=== PATIENT | female | born 1980 | race Caucasian/White ===

== ENCOUNTER 2017-09-20 00:20 | Emergency (ER) | END 2017-09-20 06:06 | disposition home or self-care (01) ==

== ENCOUNTER 2019-05-22 13:29 | Inpatient (IN) | payer MEDICAID ==
[~2019-05-22 13:29] MED LIST: ACET500C5 PO; IBUP-1542 PO; PRENAT PO
[2019-05-22 14:07] VITALS: BP 146/90; PULSE 80; RESP 18
[2019-05-22] MEDS ORDERED: CEFAZOLIN 2 GM/50 ML (PMX) 50 ML IVPB ONE (14:30)
[2019-05-22] MEDS ORDERED: LACTATED RINGER'S 1,000 ML IV SCH ×2 (17:00→23:30)
[2019-05-22] MEDS ORDERED: LABETALOL HCL 20MG INJ IV PRN (18:30)
[2019-05-22] MEDS ORDERED: MAGNESIUM SULFATE 4 GM/100 ML 100 ML ONE (18:30)
[2019-05-22] MEDS ORDERED: MAGNESIUM SULFATE 4 GM/100 ML 100 ML IV SCH (18:30)
[2019-05-22] MEDS ORDERED: CA GLUCONATE (GM) 10% 10ML INJ IV PRN (18:30)
[2019-05-22] MEDS ORDERED: DIPHENHYDRAMINE 50 MG INJ IV PRN ×2 (19:00)
[2019-05-22] MEDS ORDERED: ALBUTEROL 0.083% (NEB) 2.5 MG/3 ML AMP HHN PRN (19:00)
[2019-05-22] MEDS ORDERED: FENTAnyl 50 MCG/ML VIAL IV PRN ×2 (19:00)
[2019-05-22] MEDS ORDERED: KETOROLAC 30 MG INJ IV PRN ×2 (19:00)
[2019-05-22] MEDS ORDERED: NALOXONE (0.4 MG/ML) INJ IV PRN (19:00)
[2019-05-22] MEDS ORDERED: HYDROmorphONE 0.5 MG/0.5 ML SYG IV PRN ×2 (19:00)
[2019-05-22] MEDS ORDERED: HYDROmorphONE 1 MG/5 ML IV SYRINGE IV PRN ×2 (19:00)
[2019-05-22] MEDS ORDERED: METOCLOPRAMIDE 10 MG INJ IV PRN (19:00)
[2019-05-22] MEDS ORDERED: ONDANSETRON 4 MG INJ IV PRN ×2 (19:00)
[2019-05-22] MEDS: MAGNESIUM SULFATE 40GM/1000ML 1,000 ML IV SCH (19:17)
[2019-05-22] MEDS ORDERED: morphine SULFATE/PF (10 MG/10 ML) INJ ONE (19:49)
[2019-05-22] MEDS ORDERED: PHENYLephrine (100 MCG/ML) 10ML SYG ONE (19:49)
[2019-05-22] MEDS ORDERED: OXYTOCIN 30 UNITS/LR 500 ML BAG IV ONE (19:49)
[2019-05-22] MEDS ORDERED: OXYTOCIN 30 UNITS/LR 500 ML IV PRN ×2 (22:00→23:30)
[2019-05-22] MEDS ORDERED: CARBOPROST 250 MCG INJ IM PRN ×2 (22:00→23:30)
[2019-05-22] MEDS ORDERED: OXYTOCIN 30 UNITS/LR 500 ML IV SCH ×2 (22:00→23:30)
[2019-05-22] MEDS ORDERED: MISOPROSTOL 200 MCG TAB PR PRN ×2 (22:00→23:30)
[2019-05-22] MEDS ORDERED: LANOLIN HPA 1 PKT TOP PRN (23:30)
[2019-05-23] VITALS (20 sets, daily range): BP systolic 102–152; BP diastolic 59–84; PULSE 82–101; RESP 16–20
[2019-05-23] MEDS: MAGNESIUM SULFATE 40GM/1000ML 1,000 ML IV SCH ×2 (03:18→15:02)
[2019-05-23] MEDS: SENNA/DOCUSATE NA (8.6MG/50MG) TAB PO SCH ×2 (09:28→21:32)
[2019-05-23] MEDS ORDERED: OXYCODONE/ACETAMINOPHEN (5/325) TAB PO PRN (19:00)
[2019-05-23] MEDS: IBUPROFEN 800 MG TAB PO SCH (21:32)
[2019-05-24 00:40] VITALS: BP 125/66; PULSE 86; RESP 18
[2019-05-24 04:51] VITALS: BP 140/81; PULSE 76; RESP 18
[2019-05-24] MEDS: IBUPROFEN 800 MG TAB PO SCH ×3 (06:05→21:31)
[2019-05-24 08:00] VITALS: BP 119/68; PULSE 72; RESP 18
[2019-05-24] MEDS: SENNA/DOCUSATE NA (8.6MG/50MG) TAB PO SCH ×2 (10:23→21:30)
[2019-05-24] MEDS: OXYCODONE/ACETAMINOPHEN (5/325) TAB PO PRN ×2 (10:24→17:05)
[2019-05-24 16:12] VITALS: BP 133/82; PULSE 92; RESP 18
[2019-05-24 19:45] VITALS: BP 141/89; PULSE 62; RESP 18
[2019-05-25 00:10] VITALS: BP 147/83; PULSE 57; RESP 18
[2019-05-25 04:50] VITALS: BP 141/78; PULSE 62; RESP 20
[2019-05-25] MEDS: IBUPROFEN 800 MG TAB PO SCH ×2 (06:11→14:00)
[2019-05-25] MEDS: OXYCODONE/ACETAMINOPHEN (5/325) TAB PO PRN (08:01)
[2019-05-25 08:30] VITALS: BP 143/77; PULSE 72; RESP 18
[2019-05-25] MEDS ORDERED: DIPHTH/TET/ACEL PERTUSS (ADULT) 0.5 ML VIAL IM* ONE (09:00)
[2019-05-25] MEDS: SENNA/DOCUSATE NA (8.6MG/50MG) TAB PO SCH (12:19)
[2019-05-25 15:30] VITALS: BP 148/75; RESP 18
[2019-05-25 16:20] VITALS: BP 141/77; PULSE 70; RESP 18
== END 2019-05-25 18:05 | disposition home or self-care (01) | DRG 785 ==
LOC: OBT 13:29 → L-D 13:29 → OBT 14:15 → L-D 14:15 → PP1 05-23 00:31
PROVIDERS: ADMIT Obstetrics & Gynecology; ATTEND Obstetrics & Gynecology
PROC: 10D00Z1 Extraction of Products of Conception, Low, Open Approach (ICD-10-PCS; principal; 2019-05-23)
PROC: 0UB70ZZ Excision of Bilateral Fallopian Tubes, Open Approach (ICD-10-PCS; 2019-05-23)
DX: O14.13 Severe pre-eclampsia, third trimester (principal); O24.429 Gestational diabetes mellitus in childbirth, unspecified control; O34.211 Maternal care for low transverse scar from previous cesarean delivery; Z3A.38 38 weeks gestation of pregnancy; Z37.0 Single live birth; Z30.2 Encounter for sterilization
CPT/HCPCS: 76818; 80053; 81001; 82962; 83735; 84560; 85025; 85610; 85730; 86592; 86850; 86900; 86901; 87340; 88302; 99464; G0463; J0690; J2274; J2370; J2405; J2590; J7120